=== PATIENT | male | born 1975 | race Hispanic/Latino ===

== ENCOUNTER 2016-08-27 07:53 | Emergency (ER) | payer OTHER ==
[2016-08-27 08:02] VITALS: BP 149/85; PULSE 90; RESP 18; TEMP 98.2; O2SAT 98
--- NOTE | 2016-08-27 08:34 | ED PDOC ---
HPI: General Adult Time Seen by Provider: 08/27/16 08:07 Chief Complaint (Nursing): Weakness/Neurological Deficit Chief Complaint (Provider): Weakness/Neurological Deficit History Per: Patient History/Exam Limitations: no limitations Onset/Duration Of Symptoms: Days (x1 week) Current Symptoms Are (Timing): Still Present Additional Complaint(s): 41 y/o male who presents to the emergency department with a complaint of feeling off balance, tingling of the hands, upper legs bilaterally and around the left eye x1 week. Associated with dizziness, paresthesia, and chest pain. States feeling anxious for the past couple of days. Admits alcohol use for the past several days but with no intoxication; patient is visiting from [place] and is staying at [facility] with family; none are experiencing similar symptoms. Denies headache, weakness, changes in vision or speech and carbon monoxide poisoning symptoms. Of note, patient reports experiencing chest discomfort which he saw a doctor for in [place] and was diagnosed with elevated blood pressure but refused to take medications at the time. Past Medical History Reviewed: Historical Data, Nursing Documentation, Vital Signs Vital Signs: Last Vital Signs Temp 98.2 F 08/27/16 08:02 Pulse 90 08/27/16 08:02 Resp 18 08/27/16 08:02 BP 149/85 08/27/16 08:02 Pulse Ox 98 08/27/16 08:39 - Medical History PMH: HTN, Hypercholesterolemia - Family History Family History: States: Unknown Family Hx - Social History Alcohol: Social - Home Medications Home Medications: Ambulatory Orders Medication Instructions Recorded Lorazepam [Ativan] 0.5 mg PO BID PRN #4 tab 08/27/16 - Allergies Allergies/Adverse Reactions: Allergies Allergy/AdvReac Type Severity Reaction Status Date / Time No Known Allergies Allergy Verified 08/27/16 08:13 Review of Systems ROS Statement: Except As Marked, All Systems Reviewed And Found Negative Eyes: Negative for: Vision Change Cardiovascular: Positive for: Chest Pain Neurological: Positive for: Dizziness, Other (Off balance, paresthesia and tingling of the hands, upper legs bilaterally and around the left eye ). Negative for: Weakness (or speech change), Headache Psych: Positive for: Anxiety (Feeling anxious for several days) Physical Exam - Reviewed Nursing Documentation Reviewed: Yes Vital Signs Reviewed: Yes - Physical Exam Appears: Positive for: Non-toxic, No Acute Distress Head Exam: Positive for: ATRAUMATIC, NORMOCEPHALIC Skin: Positive for: Normal Color, Warm, Dry Eye Exam: Positive for: Normal appearance. Negative for: Conjunctival injection ENT: Positive for: Normal ENT Inspection. Negative for: Pharyngeal Erythema Neck: Positive for: Normal, Supple Cardiovascular/Chest: Positive for: Regular Rate, Rhythm. Negative for: Murmur Respiratory: Positive for: Normal Breath Sounds. Negative for: Accessory Muscle Use, Respiratory Distress Gastrointestinal/Abdominal: Positive for: Normal Exam, Soft. Negative for: Tenderness Extremity: Positive for: Normal ROM. Negative for: Pedal Edema, Swelling Neurologic/Psych: Positive for: Alert, Oriented, Gait (Steady), Other ( Coordination is intact. Romberg's test was negative.). Negative for: Motor/ Sensory Deficits (Intact) - Laboratory Results Result Diagrams: 08/27/16 08:30 08/27/16 08:30 - ECG O2 Sat by Pulse Oximetry: 98 (RA) Pulse Ox Interpretation: Normal Medical Decision Making Medical Decision Making: Time: 8:07 Initial impression: Differential includes anxiety, neurological process with multiple sclerosis vs electrolyte imbalance vs toxicologic Initial plan: Electrocardiogram Stat Alcohol Serum COMP Metabolic Panel Troponin I Stat EKG-ED (EDNURTX) Stat CBC w/ differential --Patient was recommended to get a complete CT of the brain but patient refused and only wants bloodwork and EKG completed. Risks discussed. labs reviewed and unremarkable BP mildly elevated but patient states known hx of prehypertension. EKG NSR without ectopy or ST changes, copy given to patient on request. Remains neurologically intact in ED. Results and initial impression explained, trial ativan 0.5mg for symptoms for likely anxiety (symptoms bilateral, worsened after he started to query symptoms online, appears anxious in ED, no objective motor or vestibular symptoms), see neurologist if symptoms persist. Given chip person neuro Dr Martínez contact information, pt staying in area for one more week. Caution advised to pt if flying with symptoms. Scribe Attestation: Documented by Laura Lobo, acting as a scribe for Umesh Woo MD. Provider Scribe Attestation: All medical record entries made by the Scribe were at my direction and personally dictated by me. I have reviewed the chart and agree that the record accurately reflects my personal performance of the history, physical exam, medical decision making, and the department course for this patient. I have also personally directed, reviewed, and agree with the discharge instructions and disposition. Disposition - Clinical Impression Clinical Impression: Paresthesia - Patient ED Disposition Is Patient to be Admitted: No Counseled Patient/Family Regarding: Studies Performed, Diagnosis, Need For Followup, Rx Given - Disposition Referrals: Emigdio Martínez MD [Staff Provider] - Non [facility] Provider, [Primary Care Provider] - Disposition: Routine/Home Disposition Time: 09:40 Condition: STABLE Additional Instructions: Return to ER for any worse or new symptoms. Take medication only as needed or necessary 2x daily. May cause drowsiness, do not drive or operate machinery while taking this medication. Prescriptions: Lorazepam [Ativan] 0.5 mg PO BID PRN #4 tab PRN Reason: Anxiety Instructions: Paresthesia (ED), Anxiety (ED)
[2016-08-27 08:59] LABS: ALB/GLOB RATIO 1.1 (1.0-2.1); ALCOHOL SERUM < 10 mg/dl (0-10); ALKALINE PHOSPHATASE 84 U/L (38-126); ALT/SGPT 36 U/L (21-72); AST/SGOT 30 U/L (17-59); BASO % 0.5 % (0.0-2.0); BILIRUBIN,TOTAL 0.4 mg/dl (0.2-1.3); BLOOD UREA NITROGEN 12 mg/dl (9-20); CALCIUM 9.3 mg/dL (8.4-10.2); CARBON DIOXIDE 25 mmol/L (22-30); CHLORIDE 106 mmol/L (98-107); EOS # 0.2 K/uL (0.0-0.7); GFR AFRICAN-AMERICAN > 60; GLUCOSE,RANDOM 122 mg/dL (75-110); LYMPH # 1.9 K/uL (1.0-4.3); LYMPH % 23.9 % (20.0-40.0); MEAN CELL VOLUME 83.9 fl (80.0-94.0); MEAN CORPUSCULAR HEMOGLOBIN 28.8 pg (27.0-31.0); MEAN CORPUSCULAR HGB CONC 34.3 g/dL (33.0-37.0); MEAN PLATELET VOLUME 8.1 fl (7.2-11.7); MONO # 0.5 K/uL (0.0-0.8); MONO % 5.7 % (0.0-10.0); NEUT # 5.3 K/uL (1.8-7.0); NEUT % 66.9 % (50.0-75.0); NRBC % 0.1 % (0.0-0.0); POTASSIUM 3.9 MMOL/L (3.6-5.0); RED CELL DISTRIBUTION WIDTH 13.1 % (11.5-14.5); SODIUM 144 mmol/l (132-148); TOTAL PROTEIN 7.9 G/DL (6.3-8.2)
--- NOTE | 2016-08-28 09:09 | CARD ---
APPROVED REPORT EKG Measurement Heart [id number] <Conclusion> Normal sinus rhythm Normal ECG
== END 2016-08-27 09:49 | disposition home or self-care (01) ==
LOC: SUPCPDRO 07:53 → H.ER 07:53
DX: R20.2 Paresthesia of skin (principal); E78.00 Pure hypercholesterolemia, unspecified; I10 Essential (primary) hypertension; R53.1 Weakness

== ENCOUNTER 2017-05-12 03:34 | Emergency (ER) | payer OTHER ==
[2017-05-12 03:45] VITALS: BP 155/81; PULSE 87; RESP 18; TEMP 97.8; O2SAT 98
--- NOTE | 2017-05-12 04:34 | ED PDOC ---
HPI: General Adult Time Seen by Provider: 05/12/17 03:41 Chief Complaint (Nursing): ENT Problem Chief Complaint (Provider): right ear pain History Per: Patient History/Exam Limitations: no limitations Onset/Duration Of Symptoms: Days (1) Additional History Per: Patient Additional Complaint(s): 41 y/o male presents with right ear discomfort x 1 day. Patient states discomfort started after putting his headphone ear pods in. Patient state he flew on a plane from [place] after that, and noted pressure to have gotten progressively worse since then. Associated "muffled" hearing. Denies fever, drainage from ear, congestion, cough. Past Medical History Reviewed: Historical Data, Nursing Documentation, Vital Signs Vital Signs: Last Vital Signs Temp 97.8 F 05/12/17 03:41 Pulse 87 05/12/17 03:41 Resp 18 05/12/17 03:41 BP 155/81 H 05/12/17 03:41 Pulse Ox 98 05/12/17 03:41 - Medical History PMH: HTN, Hypercholesterolemia - Family History Family History: States: Unknown Family Hx - Home Medications Home Medications: Ambulatory Orders Medication Instructions Recorded Lorazepam [Ativan] 0.5 mg PO BID PRN #4 tab 08/27/16 Carbamide Peroxide [Debrox Ear 5 - 10 drop AD BID #1 bottle 05/12/17 Drops] - Allergies Allergies/Adverse Reactions: Allergies Allergy/AdvReac Type Severity Reaction Status Date / Time No Known Allergies Allergy Verified 08/27/16 08:13 Review of Systems ROS Statement: Except As Marked, All Systems Reviewed And Found Negative ENT: Positive for: Ear Pain (right) Physical Exam - Reviewed Nursing Documentation Reviewed: Yes Vital Signs Reviewed: Yes - Physical Exam Appears: Positive for: Well, Non-toxic, No Acute Distress Head Exam: Positive for: ATRAUMATIC, NORMAL INSPECTION, NORMOCEPHALIC ENT: Positive for: TM Is/Are (left TM clear. Right TM obscured by cerumen. EACs clear bilaterally. No tenderness upon pinna/tragus manipulation bilaterally. ) - ECG O2 Sat by Pulse Oximetry: 98 - Progress ED Course And Treament: Small amount of Cerumen removed from external aspect of right EAC using ear currette. Large cerumen plug noted more internally after removal. Right ear irrigated without successful movement of plug. Patient educated on findings, discharged with rx Debrox. Advised ENT follow up. Return precautions given. Disposition - Clinical Impression Clinical Impression: Impacted cerumen of left ear - Patient ED Disposition Is Patient to be Admitted: No Counseled Patient/Family Regarding: Diagnosis, Need For Followup, Rx Given - Disposition Referrals: Jeff Cabrera MD [Staff Provider] - Disposition: Routine/Home Disposition Time: 04:36 Condition: STABLE Prescriptions: Carbamide Peroxide [Debrox Ear Drops] 5 - 10 drop AD BID #1 bottle Instructions: Cerumen Impaction (ED)
== END 2017-05-12 04:53 | disposition home or self-care (01) ==
LOC: H.ER 03:34
DX: H61.22 Impacted cerumen, left ear (principal); E78.00 Pure hypercholesterolemia, unspecified; I10 Essential (primary) hypertension